=== PATIENT | female | born 1975 | race American Indian/Alaskan Native ===

== ENCOUNTER 2020-12-19 23:15 | Emergency (ER) | payer OTHER ==
[2020-12-20] MEDS ORDERED: IBUPROFEN 800 MG TAB PO ONE (02:02)
[2020-12-20] MEDS ORDERED: ACETAMINOPHEN 500 MG TAB PO STA (02:02)
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
[2020-12-20 05:55] VITALS: BP 155/95
== END 2020-12-20 02:30 | disposition home or self-care (01) ==
LOC: ED 23:15
DX: S09.90XA Unspecified injury of head, initial encounter (principal); M54.9 Dorsalgia, unspecified; I10 Essential (primary) hypertension; E11.9 Type 2 diabetes mellitus without complications; Z79.899 Other long term (current) drug therapy; Z98.890 Other specified postprocedural states; V49.49XA Driver injured in collision with other motor vehicles in traffic accident, initial encounter; Y92.410 Unspecified street and highway as the place of occurrence of the external cause; Y93.89 Activity, other specified; Y99.8 Other external cause status
CPT/HCPCS: 99283